=== PATIENT | male | born 1950 | race Caucasian/White ===

== ENCOUNTER 2016-11-08 09:33 | Outpatient (CLI) | payer OTHER ==
--- NOTE | 2016-11-09 07:17 | Diagnostic Imaging Report ---
CANDELARIA BEGUM [facility] [address] [facility].[address] [address] Report Submission Date: Nov 08, 2016 8:28:58 PM CDT Patient Study Name: RACHID PARKER Date: Nov 08, 2016 10:53:06 AM CDT Modality Type: US Gender: M Description: SCROTUM : 54 Institution: [facility] Physician: CANDELARIA BEGUM Scrotal ultrasound Clinical history: Right-sided pain for 2 weeks. History of hydrocele. Technique: Real time sonography of the scrotum is performed in transverse and longitudinal views. Findings: The right testis 3.9 x 2.8 x 2.8 cm in size with a calculated volume of 16.1 ml. Left testis measures 5.5 x 2.6 x 2.9 cm in size with a calculated volume of 21.4 ml. Testicular echotexture is homogeneous. Blood flow is confirmed in the testes on color-flow imaging and Doppler interrogation. There are bilateral hydroceles larger on the left. Left epididymis is not identified. The right epididymis is enlarged and inhomogeneous with increased blood flow consistent with epididymitis. Impression: 1. Bilateral hydroceles larger on the left. 2. Inhomogeneous and enlarged right epididymis with increased blood flow consistent with epididymitis. Electronically signed on Nov 08, 2016 8:28:58 PM CDT by: Robin WOLF
== END 2016-11-08 09:34 ==
LOC: RAD 09:33
PROVIDERS: ATTEND Physician Assistant
DX: N43.3 Hydrocele, unspecified (principal); N50.811 Right testicular pain
CPT/HCPCS: 76870

== ENCOUNTER 2017-03-05 10:06 | Emergency (ER) | payer OTHER ==
[2017-03-05] MEDS ORDERED: ASPIRIN 81 MG CHEW TAB PO ONE (10:20)
[2017-03-05 10:45] LABS: BASOPHILS % 0.9 (0.0-1.5); EOSINOPHILS % 2.8 % (0.0-6.8); MEAN CORPUSCULAR HEMOGLOBIN 30.1 pg (28.0-34.0); MONOCYTES % 6.2 % (0.0-11.0); NEUTROPHILS # 3.8 # k/uL (1.4-7.7)
[2017-03-05 11:09] LABS: eGFR (African) > 60; eGFR (Non-African) > 60
[2017-03-05] MEDS ORDERED: MAG HYDROX/AL HYDROX/SIMETH 30 ML, Lidocaine 2%Visc 15ml 20 MG, PHENobarb/HYOSCY/ATROPI... PO ONE ×3 (11:23)
[2017-03-05] MEDS ORDERED: Lidocaine 2%Visc 15ml 20 MG/ML UDC ONE (11:25)
[2017-03-05] MEDS ORDERED: MAGNESIUM HYDROXIDE/AL HYDROX 30 ML UDC PO ONE (11:25)
--- NOTE | 2017-03-05 11:26 | ED Physician Documentation ---
Chest Pain - HISTORIAN Historian: patient - HPI Stated Complaint: chest and back pain Chief Complaint: Chest Pain Onset: days ago (2 days ago) Timing: gradual onset Last known Well Date: 04/03/17 Last Known Well Time: 08:00 Last known Well Code/Unknown Code: Known Context: onset during:, rest Severity: mild Quality: dull, aching Chest Pain Radiation: back Chest Pain Signs/Symptoms: denies: nausea, vomiting Worsened By: nothing Relieved By: nothing Further Comments: yes (Patient states that he has been having some constant epigastric low bilat chest pain with radiation into the back. No precipitating factor, no modifying factors noted. Patient had a repair of a hydrocele 2 weeks ago. Presented to the clinic today for pain, felt possibly to have a PE and sent to ED. Pateitn denies any leg swelling, did have some diaphorisis last night. No fever or chills noted. No SOB, Pain is not pleuritic. No change with eating. Patient had stress ECHO about 6 month ago and was normal.) - ROS CONST: none - PAST HX [place] risk factors: hypertension, hyperlipidemia DVT/PE Risk Factors: recent surgery GI disease: none Lung disease: none Surgeries/Procedures: appendectomy, other (tonsillectomy, vasectomy, hydrocele repair, ) Allergies/Adverse Reactions: Allergies Allergy/AdvReac Type Severity Reaction Status Date / Time No Known Drug Allergies Allergy Verified 03/05/17 10:46 Home Medications: Ambulatory Orders Medication Instructions Recorded [place]-3 Fatty Acids [Fish Oil] 500 mg PO DAILY 12/21/14 Azithromycin [Zithromax] 250 mg PO QD #6 tablet 03/05/17 - SOCIAL HX Smoking History: non-smoker Alcohol Use: none Drug Use: none - FAMILY HX Family HX: none - VITAL SIGNS Vital Signs: Vital Signs Temp Pulse Resp BP Pulse Ox 98.6 F 48 L 20 128/74 99 03/05/17 10:07 03/05/17 11:07 03/05/17 10:03/05/17 10:03/05/17 11:07 - REVIEWED ASSESSMENTS Nursing Assessment Reviewed: Yes Vitals Reviewed: Yes Progress - Progress Progress: 11:13 Patient is still having some pain in anterior chest, epigastric area. Will give GI cocktail. Patient called with results of CT scan with possible nodular infiltrate. Started on Azithromycin. - EKG/XRAY/CT Comments: 1st degree AV block, sinus bradycardia, Q waves in 3 with flipped t Wave ED Results Lab/Radiology - Lab Results Lab Results: Lab Results 03/05/17 03/05/17 03/05/17 10:45 10:45 10:45 WBC 5.80 K/ul K/ul (4.00-12.00) RBC 5.16 M/ul M/ul (3.90-5.20) Hgb 15.5 g/dL g/dL (12.0-18.0) Hct 45.4 % % (37.0-53.0) MCV 88.0 fl fl (80.0-100.0) MCH 30.1 pg pg (28.0-34.0) MCHC 34.2 g/dL g/dL (30.0-36.0) RDW 13.2 % % (11.3-14.3) Plt Count 298 K/mm3 K/mm3 (130-400) Neut % (Auto) 66.3 % % (39.0-79.0) Lymph % (Auto) 20.9 % % (16.0-50.0) [place] % (Auto) 6.2 % % (0.0-11.0) Eos % (Auto) 2.8 % % (0.0-6.8) Baso % (Auto) 0.9 (0.0-1.5) Neut # (Auto) 3.8 # k/uL # k/uL (1.4-7.7) Lymph # (Auto) 1.2 # k/uL # k/uL (0.6-4.0) [place] # (Auto) 0.4 # k/uL # k/uL (0.0-0.9) Eos # (Auto) 0.2 # k/uL # k/uL (0.0-0.6) Baso # (Auto) 0.0 # k/uL # k/uL (0.0-0.5) Reactive Lymphs % 3.0 % % (0.0-5.0) Reactive Lymphs # 0.2 # k/uL # k/uL (0.0-0.8) D-Dimer 459 ng/mL ng/mL (6.0-682) Sodium 139 mmol/L mmol/L (136-145) Potassium 3.2 mmol/L L mmol/L (3.5-5.0) Chloride 102 mmol/L mmol/L (98-110) Carbon Dioxide 34 mmol/L H mmol/L (20-32) BUN 23 mg/dL mg/dL (10-26) Creatinine 1.1 mg/dL mg/dL (0.4-1.5) Estimated Creat Clear 80 Est GFR ( Amer) > 60 (60 - ) Est GFR (Non-Af Amer) > 60 (60 - ) Glucose 126 mg/dL H mg/dL (70-99) Calcium 9.4 mg/dL mg/dL (8.5-10.5) Total Bilirubin 0.5 mg/dL mg/dL (0.2-1.2) AST 23 U/L U/L (0-41) ALT 24 U/L U/L (0-45) Alkaline Phosphatase 113 U/L U/L (46-116) Troponin I < 0.03 ng/mL L ng/mL (0.03-0.06) Total Protein 7.1 g/dL g/dL (6.0-8.5) Albumin 4.5 g/dL g/dL (3.0-5.5) - Orders Orders: ED Orders Category Date Time Status Continuous EKG monitoring Q30M Care 03/05/17 10:20 Active Continuous Pulse Oximetry Q30M Care 03/05/17 10:20 Active CHEST P.A.&LAT 2 VIEWS [RAD] Stat Exams 03/05/17 Ordered CBC/PLATELET/DIFF Routine Lab 03/05/17 10:45 Completed CMP Routine Lab 03/05/17 10:45 Completed D DIMER Routine Lab 03/05/17 10:45 Completed TROPONIN I (cTnI) Stat Lab 03/05/17 10:45 Completed Aspirin Med 03/05/17 10:20 Discontinued 324 mg PO NOW ONE MYLANTA 30 ML,LIDOCAINE HCL 20 ML, 10ML Med 03/05/17 11:23 Ordered Mag Hydrox/Al Hydrox/Simeth [Mylanta] 30 ml Lidocaine 2%Visc 15ml [Xylocaine] 20 ml PHENobarb/HYOSCY/ATROPINE/SCOP [] 10 ml PO NOW Oxygen Daily Oxygen 03/05/17 10:30 Ordered EKG WITH COMPARISON Stat Ther 03/05/17 10:20 Ordered Chest Pain Physical Exam - EXAM General Appearance: no acute distress EENT: ENT inspection normal. No: pharyngeal erythema Neck: nml inspection, no carotid bruit. No: JVD present, lymphadenopathy Respiratory: no resp. distress, chest non-tender, nml breath sounds. No: resp.distress CVS: no murmur, no gallop, occasional extrasystoles, bradycardia Abdomen: soft, no organomegaly, normal bowel sounds, no abdominal bruit, no distension Neuro: oriented X3, mood/affect nml, cognition normal Discharge Clincal Impression: Atypical chest pain Prescriptions: Azithromycin [Zithromax] 250 mg PO QD #6 tablet Referrals: Annette Pina MD [Primary Care Provider] - 2 Days Additional Instructions: Put a warm compress on the chest area. Take some Aleve 220mg tablets (2 tablets ) twice a day with food. If symptoms continue to follow-up in clinic or return to the ED. Home Medications: Ambulatory Orders [place]-3 Fatty Acids [Fish Oil] 500 mg PO DAILY 12/21/14 Azithromycin [Zithromax] 250 mg PO QD #6 tablet 03/05/17 Condition: Stable Disposition: 01 HOME, SELF-CARE Decision to Admit: NO Date of Decison to Admit: 03/05/17 Decision Time: 12:36
[2017-03-05 13:21] VITALS: BP 130/80
--- NOTE | 2017-03-05 13:47 | Diagnostic Imaging Report ---
ALBERTO ELIZABETH [facility] [address] [facility].[address] [address] Report Submission Date: Mar 05, 2017 11:31:11 AM CDT Patient Study Name: RACHID PARKER JR Date: Mar 05, 2017 10:34:55 AM CDT Modality Type: CR Gender: M Description: CHEST : 54 Institution: [facility] Physician: ALBERTO ELIZABETH Chest - two views Clinical history: Chest pain. Findings: Examination of the chest in PA and lateral views with no prior film for comparison demonstrates lungs to be clear. Cardiovascular and mediastinal silhouettes are within normal limits. Degenerative changes are seen in the thoracic vertebrae. Impression: 1. Aortic atherosclerosis. 2. No active disease. Electronically signed on Mar 05, 2017 11:31:11 AM CDT by: Robin WOLF
--- NOTE | 2017-03-05 13:48 | Diagnostic Imaging Report ---
ALBERTO ELIZABETH [facility] [address] [facility].[address] [address] Report Submission Date: Mar 05, 2017 12:57:50 PM CDT Patient Study Name: RACHID PARKER JR Date: Mar 05, 2017 12:17:13 PM CDT Modality Type: CT\SR Gender: M Description: CT ANGIOGRAPHY CHEST 7 : 54 Institution: [facility] Physician: ALBERTO ELIZABETH CT pulmonary angiogram Clinical history: Chest and back pain for 2 days. Rule out pulmonary embolus. Contrast administered: 90 ml of Omnipaque. Technique: CT pulmonary angiography is performed with intravenous infusion of contrast. Sliding coronal and sagittal MIP reconstructions are performed by the technologist. Findings: There is nodular infiltrate in the superior segment of the left lower lobe. This is likely inflammatory in etiology, but follow-up to resolution is recommended. Nodular components are not well defined. Follow-up CT in 3 months could be performed for confirmation. Vascular calcification is present in the thoracic aorta with extension into the origins of the great vessels and the coronary arteries. Vascular structures enhance normally. There is no filling defect in the pulmonary arteries or vascular cutoff to suggest the diagnosis of pulmonary embolism. Impression: 1. No evidence of pulmonary embolus. 2. Nodular infiltrate in the superior segment of the left lower lobe. Recommend follow-up to resolution. 3. Thoracic spondylosis. Electronically signed on Mar 05, 2017 12:57:50 PM CDT by: Robin WOLF
== END 2017-03-05 13:05 | disposition home or self-care (01) ==
LOC: ED 10:06
DX: R07.89 Other chest pain (principal)
CPT/HCPCS: 71020; 71275; 80053; 84484; 85025; 85379; A9270; Q9966; 99283; S1016

== ENCOUNTER 2017-06-20 14:18 | Outpatient (CLI) | payer OTHER ==
--- NOTE | 2017-06-20 15:24 | Diagnostic Imaging Report ---
CANDELARIA BEGUM [facility] [address] [facility] [address] [address] Report Submission Date: Jun 20, 2017 2:40:44 PM DRIP MOLDER Patient Study Name: RACHID PARKER JR Date: Jun 20, 2017 2:32:19 PM DRIP MOLDER Modality Type: CR Gender: M Description: SHOULDER : 54 Institution: [facility] Physician: CANDELARIA BEGUM Examination: Plain film shoulder History: Chronic discomfort. Comparison exams: None provided Findings: 2 views of the shoulder demonstrate normal cortical margins. No evidence for fracture or dislocation. No soft tissue abnormality. Impression: No acute osseous process. If suspect soft tissue abnormality, consider obtaining MRI to further evaluate. Electronically signed on Jun 20, 2017 2:40:44 PM DRIP MOLDER by: Arun WOLF
== END 2017-06-20 14:20 ==
LOC: RAD 14:18
PROVIDERS: ATTEND Physician Assistant
DX: M25.511 Pain in right shoulder (principal)
CPT/HCPCS: 73030

== ENCOUNTER 2017-08-12 10:47 | Outpatient (CLI) | payer OTHER ==
[2017-08-12 11:24] LABS: eGFR (African) > 60; eGFR (Non-African) > 60
== END 2017-08-12 10:50 ==
LOC: LAB 10:47
PROVIDERS: ATTEND Orthopaedic Surgery Sports Medicine
DX: M25.511 Pain in right shoulder (principal)
CPT/HCPCS: 36415; 80048

== ENCOUNTER 2018-01-14 09:22 | Outpatient (CLI) | payer MEDICARE, OTHER ==
[2018-01-14 10:14] LABS: eGFR (African) > 60; eGFR (Non-African) > 60
== END 2018-01-14 09:23 ==
LOC: LAB 09:22
PROVIDERS: ATTEND Family Medicine
DX: Z00.00 Encounter for general adult medical examination without abnormal findings (principal); Z12.5 Encounter for screening for malignant neoplasm of prostate; I10 Essential (primary) hypertension
CPT/HCPCS: 36415; 80053; 80061; G0103

== ENCOUNTER 2019-02-24 14:43 | Outpatient (CLI) | payer MEDICARE, OTHER ==
--- NOTE | 2019-02-24 15:35 | Diagnostic Imaging Report ---
AI WHITAKER [facility] [address] [facility] [address] [place], [place]. [address] Report Submission Date: Feb 24, 2019 3:32:36 PM CDT Patient Study Name: RACHID PARKER Date: Feb 24, 2019 2:52:32 PM CDT Modality Type: CT\SR Gender: M Description: CT ABD W/O CONTRAST : 54 Institution: [facility] Physician: AI WHITAKER Exam: CT abdomen and pelvis without contrast. History: Flank pain. Axial images through the abdomen and pelvis without oral or IV contrast is submitted along with sagittal and coronal reformatted images. The visualized lower lung mtz are clear. A small hiatal hernia is noted. No free intraperitoneal air is identified. The gallbladder is distended without stones. The liver, spleen and pancreas are normal attenuation. The adrenal glands are normal configuration. The abdominal aorta is of normal caliber. No periaortic lymphadenopathy is identified. Both kidneys are normal attenuation. No hydronephrosis or hydroureter is identified. The urinary bladder is partially distended without intrinsic filling defect. The small bowel is of normal caliber. Air and stool seen throughout the large intestine. No inflammatory changes in the mesentery or ascites is identified. No bony abnormalities are identified. Impression: Small hiatal hernia. No hydronephrosis or hydroureter. No inflammatory changes in the mesentery or ascites is identified. Nonspecific bowel gas pattern. Electronically signed on Feb 24, 2019 3:32:36 PM CDT by: Ryan WOLF
== END 2019-02-24 14:45 ==
LOC: RAD 14:43
PROVIDERS: ATTEND Family Medicine
DX: R10.9 Unspecified abdominal pain (principal)
CPT/HCPCS: 74150